=== PATIENT | male | born 1945 | race Hispanic/Latino ===

== ENCOUNTER 2018-02-12 08:32 | Outpatient (CLI) | payer MEDICARE ==
--- NOTE | 2018-02-12 12:09 | MRI ---
MRI LUMBAR SPINE NONCONTRAST: DATE: 02/12/2018 HISTORY: A 72-year-old male with M54.16, lumbar radiculopathy. Low back pain radiating to right lower extremi ty with numbness. COMPARISON: None. FINDINGS: There are five lumbar type vertebrae. Vertebral body heights are maintained. No major bone marrow s ignal abnormality. Alignment is normal. There is loss of lordosis, suggestive of muscle spasm. The spinal canal is diffusely small in caliber on a congenital basis due to developmentally short pedicl es. This is exacerbated by lumbar spondylosis. The conus medullaris terminates at the lower L1 leve l. There is moderate disk space narrowing at L4-L5. There is narrowing of the right side of the dis k space with prominent right lateral and far lateral disk-osteophyte complex, protruding into the rig ht prevertebral space, at L5-S1. The central portion of the L5-S1 disk space maintains its height. There is no high grade disk space narrowing at any other level. There are moderate bilateral degener ative facet changes at L2-L3, L3-L4, and L4-L5, associated with moderate ligamentum flavum thickening . There are diffuse disk bulges at all levels from L1-L2 through L5-S1. They are most prominent at the last three levels. All these factors exacerbate the developmentally small caliber spinal canal. The findings regarding the spinal canal and the neural foraminal stenosis, by individual levels, are as follows: T12-L1: Mild degenerative facet changes. No additional findings. L1-L2: Mild to moderate central spinal canal stenosis. Mild to moderate bilateral neural foraminal stenosis. L2-L3: Severe central spinal canal stenosis. Mild right neural foraminal stenosis. Mild to moderat e left neural foraminal stenosis. L3-L4: Moderately severe central spinal canal stenosis. Moderate right neural foraminal stenosis. Mild to moderate left neural foraminal stenosis. L4-L5: Moderate to severe central spinal canal stenosis. High-grade lateral recess stenosis bilater ally. Moderate bilateral neural foraminal stenosis, left worse than right. L5-S1: Moderate right lateral recess stenosis. Mild left lateral recess stenosis. No high grade ce ntral spinal canal stenosis. Although the degree of right neural foraminal stenosis is moderate prox imally, there is chronic deformation of the exiting right L5 nerve root, lateral to the neural forame n, due to a combination of right-sided disk space narrowing and right lateral and far lateral broad-b ased disk osteophytic bar complex. There is moderate left neural foraminal stenosis. IMPRESSION: 1. Developmentally small caliber spinal canal, exacerbated by lumbar spondylosis (multilevel mild an d moderate degenerative disk disease and multilevel moderate facet osteoarthrosis). 2. Chronic impingement on the exiting right L5 nerve root, lateral to the right L5-S1 neural foramen . 3. High grade central spinal canal stenosis at L2-L3, L3-L4, and L4-L5. 4. High grade lateral recess stenosis at multiple levels. MAGDALENO Morales POS: [facility]
== END 2018-02-12 08:33 | disposition home or self-care (01) ==
LOC: BICMRI 08:32
PROVIDERS: ATTEND Neurological Surgery
DX: M51.16 Intervertebral disc disorders with radiculopathy, lumbar region (principal); M47.26 Other spondylosis with radiculopathy, lumbar region; M48.061 Spinal stenosis, lumbar region without neurogenic claudication
CPT/HCPCS: 72148

== ENCOUNTER 2018-03-28 05:39 | Outpatient (CLI) | payer MEDICARE ==
[2018-03-28 10:18] LABS: Hemoglobin 12.9 g/dL (14.0-18.0); Mean Corpuscular Hemoglobin 30.9 pg (27.0-31.0); Mean Corpuscular Volume 90.7 fL (78.0-98.0); Mean Platelet Volume 10.3 fL (7.4-10.4); Platelet Count 172 thou/uL (130-400); RBC Distribution Width 12.1 % (11.5-14.5); Red Blood Cell (RBC) Count 4.18 mill/uL (4.70-6.10); White Blood Cell (WBC) Count 7.2 thou/uL (4.8-10.8)
[2018-03-28 10:36] LABS: Anion Gap 12 mmol/L (10-20); BUN (Urea Nitrogen) 26 mg/dL (8.4-25.7); Calc. Creatinine Clearance 0 mL/min (70-130); Calcium 10.2 mg/dL (7.8-10.44); Carbon Dioxide 24 mmol/L (23-31); Chloride 104 mmol/L (98-107); Estimated GFR-MDRD 54; Glucose 104 mg/dL (83-110); Potassium 4.7 mmol/L (3.5-5.1); Sodium 135 mmol/L (136-145)
== END 2018-03-28 05:40 | disposition home or self-care (01) ==
LOC: LABBT 05:39
PROVIDERS: ATTEND Neurological Surgery
DX: Z01.818 Encounter for other preprocedural examination (principal); M54.16 Radiculopathy, lumbar region; M48.061 Spinal stenosis, lumbar region without neurogenic claudication
CPT/HCPCS: 80048; 85027; 93005; 93010

== ENCOUNTER 2018-04-01 09:14 | Day surgery (SDC) | payer MEDICARE ==
[2018-03-28 09:58] VITALS: BMI 31.6
--- NOTE | 2018-04-01 07:11 | HP ---
HISTORY OF PRESENT ILLNESS: Mr. Koehler is the of one of our patients who presents for severe right lower extremity L5 and S1 pain that he and I had actually discussed in the past. He had a new MRI apparently at [facility] that reveals severe multilevel stenosis, most severe to the right of L5, but also centrally at L2-L4. He has attempted physical therapy and medications in the past, has not tried injections, but is not significantly interested in doing so since pain significantly limits his mobility at times and this is becoming more and more frequent. He has reached to the point now where he wants to move forward with surgery if possible. PAST MEDICAL HISTORY: Significant for hypercholesterolemia, diabetes, coronary artery disease, history of blood transfusion, hypertension. PAST SURGICAL HISTORY: He does have coronary stents placed. MEDICATIONS: None listed. ALLERGIES: NO KNOWN DRUG ALLERGIES. PHYSICAL EXAMINATION: GENERAL: The patient is alert and oriented x3. MUSCULOSKELETAL: Gait is mildly antalgic. Lower extremity motor exam is normal. ASSESSMENT: Lumbar radiculopathy and spinal stenosis. PLAN: Dr. Escobar met with the patient, reviewed imaging, and advocated for L2-L4 laminectomy with a right L5 facetectomy. He explained to the patient the risks, benefits, and alternatives of the procedure. The patient expressed understanding and elected to move forward with surgery as discussed. I do believe the patient is mentally competent and capable of making medical decisions for himself. We will move forward with surgery as planned. Job ID: [id number]
[2018-04-01] MEDS ORDERED: CEFAZOLIN 2 GM/50 ML BAG ONE ×2 (11:14→17:04)
[2018-04-01] MEDS ORDERED: Bupivacaine HCl 0.5%/Epinephrine 1:200,000/PF 30 ml Vial ONE (12:26)
[2018-04-01] MEDS ORDERED: Fentanyl 100 MCG/2 ML VIAL ONE ×4 (13:02→16:04)
[2018-04-01] MEDS ORDERED: Thrombin 5000 UNITS/5 ML VIAL ONE (14:02)
[2018-04-01] MEDS ORDERED: PROPOFOL 200 MG/20 ML VIAL ONE (14:43)
[2018-04-01] MEDS ORDERED: ePHEDrine/0.9% NaCl/PF SYRINGE 50 mg/10 ml ONE (14:43)
[2018-04-01] MEDS ORDERED: Dexamethasone 20 MG/5 ML VIAL ONE (14:43)
[2018-04-01] MEDS ORDERED: Glycopyrrolate 0.2 MG/ML 5 ML SYRINGE ONE (14:43)
[2018-04-01] MEDS ORDERED: PHENYLEPHRINE-NS 100 MCG/ML 10 ML SYRINGE ONE (14:43)
[2018-04-01] MEDS ORDERED: Lidocaine 1% PF 5 ML VIAL ONE (14:43)
[2018-04-01] MEDS ORDERED: Succinylcholine Chloride 20 MG/ML 10 ml SYRINGE FS ONE (14:43)
[2018-04-01] MEDS ORDERED: Ondansetron PF 4 MG/2 ML Vial ONE (14:43)
[2018-04-01] MEDS ORDERED: HYDROcodone/Acetaminophen 5/325 mg Tablet ONE (16:49)
--- NOTE | 2018-04-02 14:21 | OP ---
DATE OF PROCEDURE: 04/01/2018 TIMBER SELECTOR: Gideon Villagomez PA-C INDICATION: Pain. DIAGNOSES: Lumbar stenosis with neurogenic claudication and lumbar radiculopathy. PROCEDURES PERFORMED: L2 through L4 lumbar decompression, right L5 hemilaminectomy, medial facetectomy, and foraminotomy. ANESTHESIA: General. DESCRIPTION OF PROCEDURE: The patient was brought into the operating room and placed under general anesthesia. He was flipped from the supine to prone position on operating room table. A linear incision was planned spanning L2 through L5. After prepping and draping and after a preoperative pause, the incision was created. The soft tissues were swept away from midline. Self-retaining retractors were placed in the wound for optimal exposure. After confirming the appropriate level with C-arm fluoroscopy, laminectomy was performed extending from L2 to the top of L5. The laminectomy was completed using a high-speed cutting drill bit as well as 2, 3, and 4 mm Kerrisons. Laminectomy was extended laterally to encompass the medial aspect of the facet joints in order to decompress the lateral recesses. After decompressing L2 through the top of L5 segments, I redirected my attention to the right L5 nerve root as it exited through the foramina of L5, where I performed a foraminotomy on the right side and medial facetectomy. The wound was then irrigated. Hemostasis was maintained throughout. The wound was then closed in anatomic layers and a pressure dressing was applied. There were no known procedural complications. Job ID: [id number]
== END 2018-04-01 17:30 | disposition home or self-care (01) ==
LOC: SDC 09:14
PROVIDERS: ATTEND Neurological Surgery
PROC: 01NB0ZZ Release Lumbar Nerve, Open Approach (ICD-10-PCS; principal; 2018-04-01)
DX: M48.062 Spinal stenosis, lumbar region with neurogenic claudication (principal); M54.16 Radiculopathy, lumbar region; I25.10 Atherosclerotic heart disease of native coronary artery without angina pectoris; I10 Essential (primary) hypertension; E11.9 Type 2 diabetes mellitus without complications; E78.00 Pure hypercholesterolemia, unspecified; Z95.5 Presence of coronary angioplasty implant and graft; Z79.84 Long term (current) use of oral hypoglycemic drugs; Z79.82 Long term (current) use of aspirin; Z79.899 Other long term (current) drug therapy
CPT/HCPCS: 76000; J0670; J1100; J2001; J2405; J2704; J3010

== ENCOUNTER 2018-08-06 14:31 | Outpatient (CLI) | payer MEDICARE ==
[~2018-08-06 14:31] MED LIST: Gadobenate Dimeglumine 529 MG/1 ML (20ML VIAL) ONE
--- NOTE | 2018-08-06 16:17 | MRI ---
Exam: Lumbar spine MRI with and without contrast COMPARISON: 02/12/2018 FINDINGS: Appropriate T1 marrow signal intensity of the lumbar vertebra. Lumbar spine vertebral body height is maintained. There is no fracture. Straightening of normal lumbar lordosis likely due to patient position or spasm. STIR sequences do not demonstrate any evidence of edema due to fracture or ligamentous injury. No abnormal enhancement of the vertebral bodies. No abnormal enhancement within the thecal sac includ ing the cauda equina and conus medullaris Appropriate signal intensity of the visualized paraspinal muscles and solid organs. Stable T2 hyperin tensity in the left renal pelvis. Conus medullaris terminates at the upper aspect of L1 Interval laminectomy defect at L3, and L4. T12-L1: Adequate disc hydration. No significant central canal stenosis or neural foraminal narrowing L1-L2: Adequate disc hydration. Generalized disc bulge, ligament flavum thickening and facet hypertro phy result in mild to moderate central canal stenosis. Moderate bilateral neural foraminal narrowing. L2-L3: Mild loss of disc space height. Generalized disc bulge, ligament flavum thickening and facet h ypertrophy result in severe central canal stenosis, unchanged. Moderate right and moderate to severe left neural foraminal narrowing L3-L4: Posterior laminectomy defect. No significant central canal stenosis. Enhancing scar tissue at the operative site. Scar tissue extends into both subarticular zones and partially encompasses bilateral traversing L4 nerve roots. Moderate right and [id number] left neural foraminal narrow ing. L4-L5: Posterior laminectomy defect. No evidence of high-grade central canal stenosis. Combination of disc material and scar tissue along the anterior epidural space. There does appear to be some scar tissue in both subarticular zones with partial obscuration of bilateral traversing L5 nerve roots. Mo derate to severe right and left neural foraminal narrowing L5-S1: Right subarticular disc bulge. Disc material abuts but does not obscure the traversing right S 1 nerve root. No significant stenosis of the thecal sac. Moderate to severe right and moderate left neural foraminal narrowing. IMPRESSION: 1. Interval laminectomy at L3 and L4. No evidence of severe central canal stenosis at the laminectomy defect sites. However, there does appear to be some enhancing scar tissue involving the left and right subarticular zones at L3-L4 and L4-L5. Scar tissue does partially encompass the traversing L4 a nd L5 nerve roots. 2. Stable severe central canal stenosis at L2-L3. 3. Significant neural foraminal narrowing at multiple levels, as described above. Transcribed Date/Time: 08/06/2018 4:30 PM
== END 2018-08-06 14:32 | disposition home or self-care (01) ==
LOC: BICMRI 14:31
PROVIDERS: ATTEND Neurological Surgery
DX: M54.16 Radiculopathy, lumbar region (principal); M48.061 Spinal stenosis, lumbar region without neurogenic claudication; M48.07 Spinal stenosis, lumbosacral region; L90.5 Scar conditions and fibrosis of skin; Z98.890 Other specified postprocedural states
CPT/HCPCS: 72158; 82565; A9577

== ENCOUNTER 2019-12-11 14:15 | Outpatient (CLI) | payer MEDICARE ==
--- NOTE | 2019-12-11 14:51 | ULT ---
RENAL ULTRASOUND: 12/11/19 INDICATION: History of chronic kidney disease. FINDINGS: Right kidney measures 11.4 x 4.8 x 7.4 cm. Left kidney measures 11.6 x 5.4 x 7.4 cm. There are bilateral renal cysts. The left kidney cyst is seen within the mid left kidney measuring 1. 7 cm. There is an inferior pole right renal cyst measuring 1.3 cm. Prevoid bladder volume was 127.21 mL. IMPRESSION: 1. No solid renal lesion or hydronephrosis. 2. Bilateral renal cysts. POS: [facility]
== END 2019-12-11 14:16 | disposition home or self-care (01) ==
LOC: BICULT 14:15
PROVIDERS: ATTEND Internal Medicine Nephrology
DX: I12.9 Hypertensive chronic kidney disease with stage 1 through stage 4 chronic kidney disease, or unspecified chronic kidney disease (principal); N18.3 Chronic kidney disease, stage 3 (moderate); N28.1 Cyst of kidney, acquired
CPT/HCPCS: 76770

== ENCOUNTER 2020-05-19 07:58 | Day surgery (SDC) | payer MEDICARE ==
[2020-05-18 12:21] VITALS: BMI 30.7
[2020-05-19] MEDS ORDERED: Levofloxacin 500 mg/D5W 100 ml Premix Bag ONE (08:16)
[2020-05-19] MEDS ORDERED: ePHEDrine 50 MG/ML VIAL ONE (09:31)
[2020-05-19] MEDS ORDERED: PROPOFOL 200 MG/20 ML VIAL ONE (09:31)
[2020-05-19] MEDS ORDERED: Midazolam HCl 2 mg/2 ml Vial ONE (10:24)
[2020-05-19] MEDS ORDERED: Fentanyl 100 MCG/2 ML VIAL ONE (10:24)
[2020-05-19] MEDS ORDERED: Phenazopyridine HCl 100 MG TAB ONE ×2 (11:30→11:32)
--- NOTE | 2020-05-19 11:32 | OP ---
DATE OF PROCEDURE: 05/19/2020 PRIMARY CARE PHYSICIAN: Zoie Avila MD PREOPERATIVE DIAGNOSIS: A 75-year-old male with history of benign prostatic hyperplasia, IPSS score of 25, history of PVR of 100 mL. POSTOPERATIVE DIAGNOSIS: A 75-year-old male with history of benign prostatic hyperplasia, IPSS score of 25, history of PVR of 100 mL. PROCEDURES PERFORMED: Cystoscopy, UroLift implant x6. ANESTHESIA: TIVA. COMPLICATIONS: None apparent. ESTIMATED BLOOD LOSS: Minimal. DISPOSITION: To recovery room in stable condition. INDICATIONS FOR PROCEDURE AND HISTORY: Mr. Koehler is a pleasant 75-year-old male, [place]ander-speaking, presented for evaluation of BPH workup. Cysto, bladder volume study was obtained, and he desires to proceed with UroLift. Alternative options including observation, TURP discussed with him in detail and he desires minimally invasive approach. Risks and complications of the procedure have been discussed with him in detail including, but not limited to, bleeding, pain, infection, injury to adjacent organs, urosepsis, possible incrustation, migration of implant, warranting removal, possible escalation of definitive surgery was reviewed with him in detail. All questions were answered to his satisfaction and he desired to proceed. DESCRIPTION OF PROCEDURE: After an informed consent was signed, the patient was taken to the operating room, placed in a dorsal lithotomy position with the genital area prepped and draped in the usual surgical sterile fashion. A 21-Hungarian cystoscope with a visual obturator was passed to the level of the bladder. The prostatic urethra was staged demonstrating bilobar hyperplasia with moderate obstruction with no median lobe. We placed a total of 6 implants; left side 3, right side 3, which demonstrated nice bladder neck opening and creation of an anterior channel with resolution of obstructing component. 18-Hungarian Andrade catheter was placed per urethra and we will monitor him for degree of hematuria for voiding trial. He will follow up with me tomorrow for peak flow PVR. Job ID: [id number] [facility] [place]
[2020-05-19] MEDS ORDERED: HYDROcodone/Acetaminophen 5/325 mg Tablet ONE ×2 (13:41→15:27)
== END 2020-05-19 16:16 | disposition home or self-care (01) ==
LOC: SDC 07:58
PROVIDERS: ATTEND Urology
PROC: 0T7D8DZ Dilation of Urethra with Intraluminal Device, Via Natural or Artificial Opening Endoscopic (ICD-10-PCS; principal; 2020-05-19)
DX: N40.1 Benign prostatic hyperplasia with lower urinary tract symptoms (principal); N13.8 Other obstructive and reflux uropathy; R39.14 Feeling of incomplete bladder emptying; R35.1 Nocturia; I25.10 Atherosclerotic heart disease of native coronary artery without angina pectoris; I10 Essential (primary) hypertension; E78.5 Hyperlipidemia, unspecified; E11.9 Type 2 diabetes mellitus without complications; N52.9 Male erectile dysfunction, unspecified; M51.9 Unspecified thoracic, thoracolumbar and lumbosacral intervertebral disc disorder; Z87.891 Personal history of nicotine dependence; Z79.82 Long term (current) use of aspirin; Z79.84 Long term (current) use of oral hypoglycemic drugs; Z79.899 Other long term (current) drug therapy; Z95.1 Presence of aortocoronary bypass graft; Z95.5 Presence of coronary angioplasty implant and graft
CPT/HCPCS: J1956; J2250; J2704; J3010; J3490; L8699

== ENCOUNTER 2020-11-22 14:17 | Outpatient (CLI) | payer MEDICARE | END 2020-11-22 14:18 | disposition home or self-care (01) | LOC: TBSIIMAG 14:17 | PROVIDERS: ATTEND Neurological Surgery | DX: M47.26 Other spondylosis with radiculopathy, lumbar region (principal); Z98.890 Other specified postprocedural states | CPT/HCPCS: 72158 ==

== ENCOUNTER 2021-04-20 09:59 | Outpatient (CLI) | payer MEDICARE ==
[2021-04-20 11:24] LABS: Hemoglobin 12.6 g/dL (13.5-17.5); Mean Corpuscular HGB CONC 33.1 g/dL (32.0-36.0); Mean Corpuscular Hemoglobin 30.2 pg (27.0-33.0); Mean Corpuscular Volume 91.4 fl (81.2-95.1); Mean Platelet Volume 12.3 fl (7.4-10.4); Platelet Count 210 10x3/uL (150-450); RBC Distribution Width 13.2 % (11.5-14.5); Red Blood Cell (RBC) Count 4.17 10x6/uL (4.32-5.72); White Blood Cell (WBC) Count 6.3 10x3/uL (3.5-10.5)
[2021-04-20 11:47] LABS: Anion Gap 10 mmol/L (10-20); BUN (Urea Nitrogen) 24 mg/dL (8.4-25.7); Calc. Creatinine Clearance 0 mL/min (70-130); Calcium 10.1 mg/dL (7.8-10.44); Carbon Dioxide 24 mmol/L (23-31); Chloride 107 mmol/L (98-107); Glucose 103 mg/dL (83-110); Potassium 5.1 mmol/L (3.5-5.1); Sodium 136 mmol/L (136-145)
[2021-04-20 19:14] LABS: SARS-CoV-2 PCR by NAA Not Detected (NotDetected)
== END 2021-04-20 10:00 | disposition home or self-care (01) ==
LOC: LABBT 09:59
PROVIDERS: ATTEND Neurological Surgery
DX: Z01.812 Encounter for preprocedural laboratory examination (principal); M48.061 Spinal stenosis, lumbar region without neurogenic claudication; Z20.822 Contact with and (suspected) exposure to COVID-19
CPT/HCPCS: 80048; 85027; U0003; U0005

== ENCOUNTER 2021-04-25 05:46 | Day surgery (SDC) | payer MEDICARE ==
[2021-04-12 15:54] VITALS: BMI 30.7
[2021-04-25] MEDS ORDERED: Fentanyl 100 MCG/2 ML VIAL ONE (06:27)
[2021-04-25] MEDS ORDERED: Bupivacaine PF 0.5% 30 ML VIAL ONE (06:47)
[2021-04-25] MEDS ORDERED: Thrombin 5000 UNITS/5 ML VIAL ONE (06:47)
[2021-04-25] MEDS ORDERED: EPINEPHrine 1 MG/ML AMP ONE (06:47)
[2021-04-25] MEDS ORDERED: ceFAZolin 2 GM/Dextrose 50 ML IVPB ONE ×2 (06:54→11:22)
[2021-04-25] MEDS ORDERED: diphenhydrAMINE 50 MG/ML VIAL ONE (07:08)
[2021-04-25] MEDS ORDERED: Rocuronium Bromide 10 MG/ML (10ML VIAL) ONE (07:08)
[2021-04-25] MEDS ORDERED: PROPOFOL 200 MG/20 ML VIAL ONE (07:08)
[2021-04-25] MEDS ORDERED: Lidocaine 1% PF 5 ML VIAL ONE (07:08)
[2021-04-25] MEDS ORDERED: Ondansetron PF 4 MG/2 ML Vial ONE (07:08)
[2021-04-25] MEDS ORDERED: ePHEDrine 50 MG/ML VIAL ONE (07:08)
[2021-04-25] MEDS ORDERED: PHENYLEPHRINE-NS 100 MCG/ML 10 ML SYRINGE ONE (07:08)
[2021-04-25] MEDS ORDERED: HYDROmorphone 2 MG/ML VIAL ONE (08:18)
[2021-04-25] MEDS ORDERED: SUGAMMADEX SODIUM 200 MG/2 ML VIAL ONE (08:19)
[2021-04-25] MEDS ORDERED: Tamsulosin HCl 0.4 MG CAP ONE (08:51)
[2021-04-25] MEDS ORDERED: HYDROcodone/Acetaminophen 5/325 mg Tablet ONE (09:41)
== END 2021-04-25 12:26 | disposition home or self-care (01) ==
LOC: SDC 05:46
PROVIDERS: ATTEND Neurological Surgery
PROC: 01NB0ZZ Release Lumbar Nerve, Open Approach (ICD-10-PCS; principal; 2021-04-25)
DX: M48.062 Spinal stenosis, lumbar region with neurogenic claudication (principal); M54.16 Radiculopathy, lumbar region; I25.10 Atherosclerotic heart disease of native coronary artery without angina pectoris; I10 Essential (primary) hypertension; E78.5 Hyperlipidemia, unspecified; E11.9 Type 2 diabetes mellitus without complications; Z79.82 Long term (current) use of aspirin; Z79.84 Long term (current) use of oral hypoglycemic drugs; Z79.899 Other long term (current) drug therapy; Z95.5 Presence of coronary angioplasty implant and graft; Z95.1 Presence of aortocoronary bypass graft
CPT/HCPCS: 76000; C1713; C1776; J0171; J0690; J1170; J1200; J2405; J2704; J3010; J3490; S0020